=== PATIENT | male | born 1985 | race Caucasian/White ===

== ENCOUNTER 2017-08-13 01:59 | Emergency (ER) | payer OTHER ==
[~2017-08-13] VITALS: Ht 180.3 cm; Wt 90.7 kg
[~2017-08-13 01:59] MED LIST: Augmentin 875-1 EACH PO; Bactrim Ds Tab1 EACH PO; CEPH500 PO; CLIN300 PO; EPIN.3I IM; HYDACE5 PO; HYDACE5325 PO; HYDACE7.5 PO; IBUP600 PO; IBUP800 PO; Keflex500 MG PO; NAPR500 PO; NAPR550 PO; Norco 5-325 Ta1 EACH PO; OMEP20ER PO; OXYACE5T PO; PENVK500 PO; PRED20 PO; PROM25 PO; Percocet 5-3251 EACH PO; RANI150 PO; RXHYDACE PO; RXTRAM50 PO; TRAM50 PO; Ultram50 MG PO; Veetids 500500 MG PO
[2017-08-13] MEDS ORDERED: ERYT1OIN LEFTEYE (03:41)
== END 2017-08-13 04:14 | disposition home or self-care (01) ==
LOC: ER 01:59
DX: H10.9 Unspecified conjunctivitis (principal); F17.210 Nicotine dependence, cigarettes, uncomplicated; Z91.013 Allergy to seafood
CPT/HCPCS: 99284; J7030

== ENCOUNTER 2018-04-24 10:07 | Emergency (ER) | payer OTHER ==
[~2018-04-24] VITALS: Ht 180.3 cm; Wt 90.7 kg
[~2018-04-24 10:07] MED LIST changes: +ERYT1OIN LEFTEYE
[2018-04-24] MEDS ORDERED: METPRE4DP PO (10:25)
[2018-04-24] MEDS ORDERED: CYCL10 PO (10:25)
[2018-04-24] MEDS ORDERED: Norco 5-325 Ta1 EACH PO (10:25)
[2018-04-24] MEDS ORDERED: Zovirax800 MG PO (10:25)
== END 2018-04-24 10:34 | disposition home or self-care (01) ==
LOC: ER 10:07
DX: M54.41 Lumbago with sciatica, right side (principal); Z91.013 Allergy to seafood; F17.210 Nicotine dependence, cigarettes, uncomplicated; B02.9 Zoster without complications
CPT/HCPCS: 99282

== ENCOUNTER 2018-06-07 10:17 | Emergency (ER) | payer SELFPAY ==
[~2018-06-07] VITALS: Ht 180.3 cm; Wt 86.2 kg
[~2018-06-07 10:17] MED LIST changes: +CYCL10 PO; +METPRE4DP PO; +Zovirax800 MG PO
[2018-06-07] MEDS ORDERED: IBUP800 PO (12:28)
[2018-06-07] MEDS ORDERED: Cyclobenzaprine5 MG PO (12:28)
== END 2018-06-07 12:41 | disposition home or self-care (01) ==
LOC: ER 10:17
DX: M54.6 Pain in thoracic spine (principal); Z91.013 Allergy to seafood; Z79.899 Other long term (current) drug therapy; F17.210 Nicotine dependence, cigarettes, uncomplicated
CPT/HCPCS: 99283

== ENCOUNTER 2019-03-05 15:08 | Emergency (ER) | payer SELFPAY ==
[~2019-03-05] VITALS: Ht 180.3 cm; Wt 86.2 kg
[~2019-03-05 15:08] MED LIST changes: +Colace100 MG PO; +Cyclobenzaprine5 MG PO
[2019-03-05] MEDS ORDERED: Norco 5-325 Ta1 EACH PO (15:56)
[2019-03-05] MEDS ORDERED: Zovirax800 MG PO (15:56)
== END 2019-03-05 16:15 | disposition home or self-care (01) ==
LOC: ER 15:08
DX: B02.9 Zoster without complications (principal); Z79.899 Other long term (current) drug therapy; Z91.013 Allergy to seafood; F17.210 Nicotine dependence, cigarettes, uncomplicated
CPT/HCPCS: 99282

== ENCOUNTER 2019-05-30 18:06 | Emergency (ER) | payer OTHER ==
[~2019-05-30] VITALS: Ht 180.3 cm; Wt 95.2 kg
== END 2019-05-30 20:07 | disposition left against medical advice (07) ==
LOC: ER 18:06
DX: Z53.21 Procedure and treatment not carried out due to patient leaving prior to being seen by health care provider (principal)
CPT/HCPCS: 99282

== ENCOUNTER 2020-01-22 23:55 | Emergency (ER) | payer OTHER ==
[~2020-01-22] VITALS: Ht 182.9 cm; Wt 86.2 kg
[2020-01-23] MEDS ORDERED: Ciloxan5 ML BOTHEYES (01:39)
== END 2020-01-23 02:12 | disposition home or self-care (01) ==
LOC: ER 23:55
DX: S05.01XA Injury of conjunctiva and corneal abrasion without foreign body, right eye, initial encounter (principal); Z91.013 Allergy to seafood; F17.210 Nicotine dependence, cigarettes, uncomplicated; W45.8XXA Other foreign body or object entering through skin, initial encounter; Y93.89 Activity, other specified
CPT/HCPCS: 99282; A9270

== ENCOUNTER 2020-11-26 18:47 | Emergency (ER) | payer OTHER ==
[~2020-11-26] VITALS: Ht 185.4 cm; Wt 104.3 kg
[~2020-11-26 18:47] MED LIST changes: +Ciloxan5 ML BOTHEYES
== END 2020-11-26 20:04 | disposition left against medical advice (07) ==
LOC: ER 18:47
DX: S00.83XA Contusion of other part of head, initial encounter (principal); S00.81XA Abrasion of other part of head, initial encounter; W18.30XA Fall on same level, unspecified, initial encounter; F11.10 Opioid abuse, uncomplicated; Z87.891 Personal history of nicotine dependence
CPT/HCPCS: 70450; 99285-25; J7030

== ENCOUNTER 2021-11-01 02:41 | Emergency (ER) | payer OTHER ==
[~2021-11-01] VITALS: Ht 182.9 cm; Wt 97.5 kg
[2021-11-01] MEDS ORDERED: BUPRENORPHINE-1 EACH SL (02:50)
[2021-11-01] MEDS ORDERED: PRED20 PO (04:08)
[2021-11-01] MEDS ORDERED: FAMO20 PO (04:08)
[2021-11-01] MEDS ORDERED: BENADRYL25 M1 PO (04:08)
== END 2021-11-01 04:31 | disposition home or self-care (01) ==
LOC: ER 02:41
DX: T40.711A Poisoning by cannabis, accidental (unintentional), initial encounter (principal); R22.0 Localized swelling, mass and lump, head; F17.210 Nicotine dependence, cigarettes, uncomplicated; Z91.013 Allergy to seafood
CPT/HCPCS: A9270; J1100

== ENCOUNTER 2022-01-09 13:07 | Emergency (ER) | payer OTHER ==
[~2022-01-09] VITALS: Ht 180.3 cm; Wt 95.2 kg
[~2022-01-09 13:07] MED LIST changes: +BENADRYL25 M1 PO; +BUPRENORPHINE-1 EACH SL; +FAMO20 PO
[2022-01-09] MEDS ORDERED: EPIPEN0.3 MG/0.3 IM (17:10)
== END 2022-01-09 17:23 | disposition home or self-care (01) ==
LOC: ER 13:07
DX: R07.9 Chest pain, unspecified (principal); Z91.013 Allergy to seafood; Z91.030 Bee allergy status; F17.210 Nicotine dependence, cigarettes, uncomplicated
CPT/HCPCS: 71046; 93005; 93010; 99284-25

== ENCOUNTER 2022-08-06 15:06 | Emergency (ER) | payer OTHER ==
[~2022-08-06] VITALS: Ht 182.9 cm; Wt 99.8 kg
[~2022-08-06 15:06] MED LIST changes: +ACET500 PO; +EPIPEN0.3 MG/0.3 IM; +IBUP400 PO; +Robaxin750 MG PO
[2022-08-06 15:09] VITALS: BP 143/101
== END 2022-08-06 16:28 | disposition home or self-care (01) ==
LOC: ER 15:06
DX: S60.352A Superficial foreign body of left thumb, initial encounter (principal); F17.210 Nicotine dependence, cigarettes, uncomplicated; W45.8XXA Other foreign body or object entering through skin, initial encounter
CPT/HCPCS: 20600; 73140; 99283-25

== ENCOUNTER 2024-12-08 14:28 | Emergency (ER) | payer OTHER ==
[~2024-12-08] VITALS: Ht 182.9 cm; Wt 94.8 kg
[2024-12-08 15:10] VITALS: BP 162/103
== END 2024-12-08 15:14 | disposition home or self-care (01) ==
LOC: ER 14:28
DX: H93.291 Other abnormal auditory perceptions, right ear (principal); H93.11 Tinnitus, right ear; F17.210 Nicotine dependence, cigarettes, uncomplicated; Z91.013 Allergy to seafood; Z91.030 Bee allergy status; Z79.899 Other long term (current) drug therapy
CPT/HCPCS: 99282